=== PATIENT | female | born 1960 | race Two or more races ===

== ENCOUNTER 2019-06-11 13:45 | Outpatient (CLI) | payer OTHER | END 2019-06-11 13:59 | disposition home or self-care (01) | LOC: LAB 13:45 | DX: M54.5 Low back pain (principal); M17.0 Bilateral primary osteoarthritis of knee ==

== ENCOUNTER → 2019-06-11 | Outpatient (CLI) | payer OTHER ==
[~2019-06-11] MED LIST: CORGARD40 MG
== END | disposition home or self-care (01) ==
LOC: RAD 14:24
DX: M54.5 Low back pain (principal); M17.11 Unilateral primary osteoarthritis, right knee; M17.12 Unilateral primary osteoarthritis, left knee

== ENCOUNTER → 2019-06-17 13:40 | Outpatient (CLI) | payer OTHER | END | disposition home or self-care (01) | LOC: LAB 13:40 | DX: D69.3 Immune thrombocytopenic purpura (principal) ==

== ENCOUNTER → 2019-06-24 | Outpatient (CLI) | payer OTHER | END | disposition home or self-care (01) | LOC: LAB 13:36 | DX: D69.3 Immune thrombocytopenic purpura (principal) ==

== ENCOUNTER 2019-07-01 13:19 | Outpatient (CLI) | payer OTHER | END 2019-07-01 15:00 | disposition home or self-care (01) | LOC: LAB 13:19 | DX: D69.3 Immune thrombocytopenic purpura (principal) ==

== ENCOUNTER → 2019-07-08 13:38 | Outpatient (CLI) | payer OTHER | END | disposition home or self-care (01) | LOC: LAB 13:38 | DX: D69.3 Immune thrombocytopenic purpura (principal); Z87.310 Personal history of (healed) osteoporosis fracture ==

== ENCOUNTER 2019-07-15 14:43 | Outpatient (CLI) | payer OTHER | END 2019-07-15 14:53 | disposition home or self-care (01) | LOC: LAB 14:43 | DX: D69.3 Immune thrombocytopenic purpura (principal); Z87.310 Personal history of (healed) osteoporosis fracture ==

== ENCOUNTER 2019-08-26 16:32 | Outpatient (CLI) | payer OTHER | END 2019-08-27 09:19 | disposition home or self-care (01) | LOC: LAB 16:32 | DX: D69.3 Immune thrombocytopenic purpura (principal) ==

== ENCOUNTER 2019-10-20 11:57 | Outpatient (CLI) | payer OTHER | END 2019-10-20 15:00 | disposition home or self-care (01) | LOC: LAB 11:57 | DX: D69.3 Immune thrombocytopenic purpura (principal) ==

== ENCOUNTER 2021-08-17 13:22 | Outpatient (CLI) | payer OTHER | END 2021-08-17 13:24 | disposition home or self-care (01) | LOC: LAB 13:22 | PROVIDERS: ATTEND Internal Medicine Hematology & Oncology | DX: D69.3 Immune thrombocytopenic purpura (principal) ==

== ENCOUNTER 2024-07-16 11:50 | Outpatient (CLI) | payer OTHER ==
[2024-07-16 12:45] LABS: INR 1.02; PARTIAL THROMBOPLASTIN TIME 33.6 SECONDS (22.0-34.0); PROTHROMBIN TIME 11.1 SECONDS (9.0-11.5)
== END 2024-07-16 11:51 | disposition home or self-care (01) ==
LOC: LAB 11:50
PROVIDERS: ATTEND Internal Medicine Hematology & Oncology
DX: D68.8 Other specified coagulation defects (principal)

== ENCOUNTER 2024-07-27 08:00 | Day surgery (SDC) | payer OTHER ==
[2024-07-27] MEDS ORDERED: fentaNYL CITRATE 50 MCG/ML AMPUL IV PUSH ONE (12:45)
[2024-07-27] MEDS ORDERED: MIDAZOLAM HCL 2 MG/2 ML VIAL IV ONE (12:45)
[2024-07-27] MEDS ORDERED: DIPHENHYDRAMINE HCL 50 MG/ML VIAL 1ML IV ONE (12:45)
== END 2024-07-27 14:25 | disposition home or self-care (01) ==
LOC: AMB-ENDOS 08:00
PROVIDERS: ATTEND Colon & Rectal Surgery
DX: K63.5 Polyp of colon (principal); K63.89 Other specified diseases of intestine; Z88.0 Allergy status to penicillin; Z12.12 Encounter for screening for malignant neoplasm of rectum